=== PATIENT | female | born 1940 | race Caucasian/White ===

== ENCOUNTER 2020-03-01 15:12 | Inpatient (IN) | payer MEDICARE ==
[~2020-03-01] VITALS: Ht 157.5 cm; Wt 82.4 kg
[2020-03-01] MEDS ORDERED: ASPIRIN 81 MG TABLET CHEW ONE (15:59)
[2020-03-01] MEDS ORDERED: ASPIRIN 81 MG TABLET CHEW PO ONE (16:00)
[2020-03-01 16:20] LABS: BASOPHILS # (AUTO) 0.05 x10^3/uL (0-0.1); BASOPHILS % (AUTO) 1 % (0-1); EOSINOPHILS # (AUTO) 0.25 x10^3/uL (0-0.4); EOSINOPHILS % (AUTO) 4 % (1-7); LYMPHOCYTES # (AUTO) 1.58 x10^3/uL (1-3.4); LYMPHOCYTES % (AUTO) 28 % (22-44); MD NO; MEAN CORPUSCULAR HEMOGLOBIN 30.5 pg (27.0-34.8); MEAN CORPUSCULAR HGB CONC 33.1 g/dL (32.4-35.8); MEAN CORPUSCULAR VOLUME 92.1 fL (80-100); MEAN PLATELET VOLUME 7.8 fL (7.4-10.4); MONOCYTES % (AUTO) 7 % (2-9); NEUTROPHILS % (AUTO) 60 % (42-75); PLATELET COUNT 200 x10^3/uL (130-400); RED BLOOD COUNT 5.03 x10^6/uL (3.82-5.3); RED CELL DISTRIBUTION WIDTH 14.2 % (9.6-15.2)
--- NOTE | 2020-03-01 16:20 | NUR ---
PT RESTING IN [facility]. UP FOR RECHECK AT THIS TIME
[2020-03-01 16:26] LABS: ALANINE AMINOTRANSFERASE 23 U/L (12-78); ALBUMIN 3.6 g/dL (3.4-5.0); ANION GAP 6 mmol/L (5-15); CALCIUM 9.4 mg/dL (8.5-10.1); CHLORIDE 104 mmol/L (98-107); CREATININE 0.92 mg/dL (0.55-1.02)
[2020-03-01 16:30] LABS: ALKALINE PHOSPHATASE 79 U/L (45-117); BILIRUBIN,TOTAL 0.5 mg/dL (0.2-1.0); TOTAL PROTEIN 7.3 g/dL (6.4-8.2); TROPONIN I < 0.015 ng/mL (0.000-0.045)
--- NOTE | 2020-03-01 17:45 | NUR ---
PT EDUCATED ON PLAN OF CARE. TO BE ADMITTED FOR STRESS TEST.
[2020-03-01] MEDS ORDERED: ONDANSETRON ODT 4 MG PO PRN (18:00)
[2020-03-01] MEDS ORDERED: BISACODYL 10 MG SUPP PR PRN (18:00)
[2020-03-01] MEDS ORDERED: SODIUM CHLORIDE FLUSH 10ML SYR IVF PRN (18:00)
[2020-03-01] MEDS ORDERED: morphine SULFATE 10 MG/ML, 1ML IVPush PRN (18:00)
[2020-03-01] MEDS ORDERED: POLYETHYLENE GLYCOL 17 GM PACKET PO PRN (18:00)
[2020-03-01] MEDS ORDERED: NITROGLYCERIN 0.4 MG BOTTLE (25 TABS) SL PRN (18:00)
[2020-03-01] MEDS ORDERED: ACETAMINOPHEN 325 MG TABLET PO PRN (18:00)
[2020-03-01 18:25] LABS: FREE T4 (FREE THYROXINE) 1.15 ng/dL (0.76-1.46)
[2020-03-01 21:12] VITALS: BP 143/84
[2020-03-01] MEDS: HEPARIN 5,000 UNITS/ML, 1ML SQ SCH (21:15)
[2020-03-01] MEDS: SODIUM CHLORIDE FLUSH 10ML SYR IVF SCH (21:15)
[2020-03-01] MEDS ORDERED: HYDR25TA6 PO (21:31)
[2020-03-01] MEDS ORDERED: CYAN250013 PO (21:31)
[2020-03-01] MEDS ORDERED: CHOL10003 PO (21:31)
[2020-03-01] MEDS ORDERED: OMEG1CAP6 PO (21:31)
[2020-03-01] MEDS ORDERED: LOSA25TA25 PO (21:31)
[2020-03-01] MEDS ORDERED: GARL500C2 PO (21:31)
[2020-03-01] MEDS ORDERED: probiotic (21:31)
[2020-03-01] MEDS ORDERED: LEVO50TA5 PO (21:31)
[2020-03-01] MEDS ORDERED: iron supplement (21:31)
[2020-03-01] MEDS ORDERED: calcium PO/NG (21:31)
[2020-03-01] MEDS ORDERED: CEPH-367 PO (21:31)
[2020-03-01 22:15] LABS: TROPONIN I < 0.015 ng/mL (0.000-0.045)
[2020-03-01] MEDS ORDERED: CEPHALEXIN 250 MG CAPSULE PO SCH (22:30)
[2020-03-02 00:06] VITALS: BP 120/74
[2020-03-02] MEDS: HEPARIN 5,000 UNITS/ML, 1ML SQ SCH (05:08)
[2020-03-02 05:24] LABS: CHOLESTEROL, TOTAL 186 mg/dL (140-239); HDL CHOL % 33 % (28-40); HDL CHOLESTEROL (DIRECT) 62 mg/dL (40-60); LDL CHOLESTEROL,CALCULATED 105 mg/dL (54-169); LDL/HDL RATIO 1.7 (0.5-3.0); TRIGLYCERIDES 94 mg/dL (50-200); TROPONIN I < 0.015 ng/mL (0.000-0.045); VLDL CHOLESTEROL 19 mg/dL (0-25)
[2020-03-02] MEDS ORDERED: LEVOTHYROXINE 50 MCG TABLET PO SCH (06:00)
[2020-03-02] MEDS ORDERED: ASPIRIN 81 MG TABLET EC PO SCH (06:00)
[2020-03-02 07:10] VITALS: BP 103/68
[2020-03-02] MEDS: SODIUM CHLORIDE FLUSH 10ML SYR IVF SCH (08:35)
[2020-03-02] MEDS ORDERED: REGADENOSON 0.4 MG/5 ML SYRINGE ONE (08:36)
[2020-03-02] MEDS ORDERED: SENNA/DOCUSATE TABLET PO SCH (09:00)
[2020-03-02 13:42] VITALS: BP 125/78
== END 2020-03-02 14:51 | disposition home or self-care (01) | DRG 313 ==
LOC: ED 17:04 → EDIP 17:36 → 5SO 20:21 → DCLOUNGE 03-02 14:40
PROVIDERS: ADMIT Hospitalist; ATTEND Hospitalist
DX: R07.89 Other chest pain (principal); E03.9 Hypothyroidism, unspecified; E78.5 Hyperlipidemia, unspecified; I10 Essential (primary) hypertension; Z82.3 Family history of stroke; Z82.49 Family history of ischemic heart disease and other diseases of the circulatory system; Z85.828 Personal history of other malignant neoplasm of skin; Z98.49 Cataract extraction status, unspecified eye; Z88.2 Allergy status to sulfonamides
CPT/HCPCS: 36415; 71045; 78452; 80053; 80061; 83690; 84439; 84443; 84484; 85025; 93005; 93017; G0378; J1644; J2785; A9502